=== PATIENT | female | born 2000 | race Two or more races ===

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

== ENCOUNTER → 2020-09-15 | Outpatient (CLI) | payer OTHER ==
[~2020-09-15] MED LIST changes: +MECL-75 PO; -MECL25TA3 PO
--- NOTE | 2020-09-16 09:19 | RAD ---
3 views the lumbar spine without comparison for chronic low back pain, history of lumbar spine surger y. FINDINGS: There is mild straightening of the normal lumbar lordosis. There is pedicle screw and anjel f ixation of L5 on S1, however both pedicle screws at S1 are fractured, and there is grade 1 anterolist hesis of L5 on S1. No other significant degenerative changes. IMPRESSION: 1. Fractured pedicle screws at S1, with grade 1 anterolisthesis of L5 on S1. Electronically signed by: Paramjit Ledezma MD (09/16/2020 9:17 AM) [id number]
== END ==
LOC: RAD 16:54
PROVIDERS: ATTEND Family Medicine
DX: M43.17 Spondylolisthesis, lumbosacral region (principal); Z98.890 Other specified postprocedural states
CPT/HCPCS: 72100

== ENCOUNTER → 2020-09-24 | Outpatient (CLI) | payer OTHER ==
[~2020-09-24] MED LIST changes: +CLIN150C15 PO; +SULF1TAB24 PO
--- NOTE | 2020-09-24 12:07 | [facility] ---
EXAM: Lumbar spine MRI without contrast. HISTORY: Fixation hardware abnormality. Fractured screws on lumbar radiographs. TECHNIQUE: Multiplanar, multisequence magnetic resonance imaging of the lumbar spine was performed wi thout contrast. COMPARISON: Lumbar radiographs dated 09/15/2020. FINDINGS: There is instrumented posterior spinal fusion at L5-S1. There is metallic artifact which li mits evaluation of the instrumentation. The bilateral fractured screws at S1 are better characterized on the prior radiograph. There is no edema within the L5 or S1 marrow to suggest significant screw l oosening. There is grade 1 anterolisthesis of L5 on S1, measuring 3 mm. There is minimal lumbar scoli osis and mild lumbar hyperlordosis. The vertebral bodies are normal in height and the disc spaces are preserved. There is no suspicious osseous lesion. The conus terminates at L1. There is mild diffusel y decreased T1 marrow signal intensity. This is most commonly due to anemia in female patient of this age. This is not within limits to suggest a marrow infiltrative process. There is postoperative scar ring and susceptibility effect within the posterior back soft tissues. There is epidural lipomatosis primarily at the lower lumbar levels and within the sacral canal. At L1-L2 and L2-L3, there is no stenosis. At L3-L4, there is minimal endplate remodeling. There is mild left greater than right facet arthropat hy. There is minimal left greater than right foraminal stenosis. At L4-L5, there is mild left facet arthropathy. There is epidural lipomatosis resulting in mild narro wing of the thecal sac. At L5-S1, there is instrumented posterior spinal fusion. There is epidural lipomatosis resulting in s evere narrowing of the thecal sac. IMPRESSION: 1. Instrumented posterior spinal fusion at L5-S1. The recently demonstrated fractured S1 screws are b ninfa characterized on the radiographs dated 09/15/2000. 2. Grade 1 anterolisthesis of L5 on S1. This is superimposed on mild scoliosis and hyperlordosis. 3. Epidural lipomatosis primarily at the lower lumbar levels and within the sacral canal. This result s in severe narrowing of the thecal sac at the lumbosacral junction. 4. Minimal endplate remodeling and mild facet arthropathy at L3-L4, resulting in minimal left greater than right foraminal stenosis. Electronically signed by: Michelle Li MD (09/24/2020 12:04 PM) [id number]
== END ==
LOC: KCIC MRI 10:36
PROVIDERS: ATTEND Family Medicine
DX: M43.16 Spondylolisthesis, lumbar region (principal); M48.061 Spinal stenosis, lumbar region without neurogenic claudication; X58.XXXA Exposure to other specified factors, initial encounter; S32.119A Unspecified Zone I fracture of sacrum, initial encounter for closed fracture; Y93.89 Activity, other specified; Y92.89 Other specified places as the place of occurrence of the external cause; Y99.8 Other external cause status; Z96.7 Presence of other bone and tendon implants
CPT/HCPCS: 72148

== ENCOUNTER 2020-09-27 16:38 | Emergency (ER) | payer OTHER ==
[~2020-09-27] VITALS: Ht 160 cm; Wt 145.0 kg
[~2020-09-27 16:38] MED LIST changes: -CLIN150C15 PO; -SULF1TAB24 PO
[2020-09-27 17:10] VITALS: BP 204/103
[2020-09-27] MEDS ORDERED: CLIN150C15 PO (17:42)
[2020-09-27] MEDS ORDERED: SULF1TAB24 PO (17:42)
--- NOTE | 2020-09-27 17:42 | PHYS DOC ---
Past Medical History Past Medical History: No Pertinent History, Anxiety Additional Past Medical Histor: VERTIGO Past Surgical History: Other Additional Past Surgical Histo: Back surgery-lumbar fusion. Smoking Status: Never Smoker Alcohol Use: None Drug Use: None General Adult EDM: Chief Complaint: ANIMAL BITE HPI: HPI: Patient is a 20 year old female who presents to the ED today with cat scratches on her right right forearm that occurred yesterday from her own she states her cat is up-to-date with its shots. Review of Systems: Review of Systems: Constitutional: Denies fever or chills. [] Musculoskeletal: Denies back pain or joint pain. [] Integument: Reports cat bites and scratches today right forearm Neurologic: Denies headache, focal weakness or sensory changes. [] Psychiatric: Denies depression or anxiety. [] Heart Score: C/O Chest Pain: N/A Risk Factors: Risk Factors: DM, Current or recent (<one month) smoker, HTN, HLP, family history of CAD, obesity. Risk Scores: Score 0 - 3: 2.5% MACE over next 6 weeks - Discharge Home Score 4 - 6: 20.3% MACE over next 6 weeks - Admit for Clinical Observation Score 7 - 10: 72.7% MACE over next 6 weeks - Early Invasive Strategies Allergies: Allergies: Allergies Coded Allergies Type Severity Reaction Last Updated Verified amoxicillin Allergy Intermediate Rash 07/24/13 Yes Physical Exam: PE: Constitutional: Well developed, well nourished, no acute distress, non-toxic appearance. [] Skin: Right forearm with multiple puncture wounds and scratches. Adequate radial, medial, ulnar sensation to the right upper extremity. Plus right radial pulse. Cap refill less than 2 seconds of right fingers. Back: No tenderness, no CVA tenderness. [] Extremities: No tenderness, no cyanosis, no clubbing, ROM intact, no edema. [] Neurologic: Alert and oriented X 3, normal motor function, normal sensory function, no focal deficits noted. [] Psychologic: Affect normal, judgement normal, mood normal. [] EKG: EKG: [] Radiology/Procedures: Radiology/Procedures: [] Course & Med Decision Making: Course & Med Decision Making Pertinent Labs and Imaging studies reviewed. (See chart for details) This is a 20-year-old female patient presented to the ED today with cat scratches and bites to the right forearm that occurred yesterday. Tetanus up-to-date. Discharged on clindamycin and Bactrim Dragon Disclaimer: Lex Disclaimer: This electronic medical record was generated, in whole or in part, using a voice recognition dictation system. Departure Departure Impression: Primary Impression: Cat scratch of forearm Qualified Codes: S50.811A - Abrasion of right forearm, initial encounter; W55.03XA - Scratched by cat, initial encounter Additional Impression: Cat bite of forearm Qualified Codes: S51.851A - Open bite of right forearm, initial encounter; W55.01XA - Bitten by cat, initial encounter Disposition: HOME / SELF CARE / HOMELESS Condition: STABLE Referrals: ROSA ELENA CISNEROS MD (PCP) Follow-up in 1 week Patient Instructions: Cat Scratch Disease-Brief Additional Instructions: You were seen for Scratches and bites to the right forearm. You can wash the area with regular soap and water. Keep it clean and dry. Take the prescribed antibiotics until completed. Follow-up with your doctor in 1 week. Come back to the ED at any point symptoms worsen Scripts Sulfamethoxazole/Trimethoprim (BACTRIM DS TABLET) 1 Each Tablet 1 TAB PO BID for 10 Days, #20 TAB 0 Refills Prov: GRACIELA BURNS APRN 09/27/20 Clindamycin Hcl (CLINDAMYCIN HCL) 150 Mg Capsule 3 CAP PO TID, #90 CAP Prov: GRACIELA BURNS APRN 09/27/20 GRACIELA BURNS APRN Sep 27, 2020 17:42
[2020-09-27] MEDS ORDERED: DIPH,PERTUSS(ACELL),TET VAC/PF 0.5 ML SYRINGE. VAX IM ONE (18:00)
== END 2020-09-27 18:01 | disposition home or self-care (01) ==
LOC: ER 16:38
DX: S50.811A Abrasion of right forearm, initial encounter (principal); Z88.1 Allergy status to other antibiotic agents; W55.03XA Scratched by cat, initial encounter; Y93.89 Activity, other specified; Y92.89 Other specified places as the place of occurrence of the external cause; Y99.8 Other external cause status
CPT/HCPCS: 90471; 90715; 99283

== ENCOUNTER → 2020-10-12 | Outpatient (CLI) | payer OTHER ==
[2020-09-27 17:10] VITALS: BP 204/103
[~2020-10-12] MED LIST changes: +ACET325T9 PO; +CLIN150C15 PO; +IOHEXOL 180 MG/ML 10 ML VIAL. ONE; +SULF1TAB24 PO; +methylPREDNISolone ACETATE 40 MG/ML VIAL. ONE; +methylPREDNISolone ACETATE 80 MG/ML VIAL. ONE
--- NOTE | 2020-10-12 15:48 | PDOC1 ---
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 not with any specific lifting but also with some twisting and bending patient reports the pain began in the low back and occasionally radiate in the posterior gluteus and lateral thighs but mostly in the back patient reports is constant sharp stabbing in the back aching worse at night waking her from sleep least for 5 times does not affect her bowel bladder control or ability to walk is worse with standing still also sitting for prolonged periods patient reports he was doing some exercise on her own some stretching has had no formal physical therapy at this time or other treatments patient to take ibuprofen which is not decreasing the pain significantly. Patient reports her disability rating 0-10 10 being worst is an 8 with him home responsibilities 9 with recreation 6 with social activity 8-10 with occupation 8 with sexual behavior and life support activities and 5 with self-care activities. Patient have MRI scan lumbar spine which shows L5-S1 instrumented posterior spinal fusion with narrowing of the th ecal sac L4-5 shows mild left facet arthropathy with epidural lipomatosis also mild narrowing of the thecal sac L3-4 shows mild left greater than right facet arthropathy and mild left greater than right foraminal stenosis. Patient reports no loss of motor function but significant fatigability in the lower extremities with standing and repetitive flexing and extension at the lumbar spine. PAST MEDICAL HISTORY: PMH: No major medical problems or conditions that she is aware of PREVIOUS SURGERIES: Past Surgical Hx: Lumbar fusion at age 13 L5-S1 with posterior instrumentation CURRENT MEDICATIONS: Current Meds: Active Scripts Medications Dose Route/Sig Max Daily Dose Days Date Category Tylenol (Acetaminophen) 325 Mg Tablet 1 Tab PO PRN Q4HRS 10/12/20 Reported ALLERGIES; Allergies: Coded Allergies: amoxicillin (Verified Allergy, Intermediate, Rash, 07/24/13) FAMILY HISTORY: Family Hx: No major medical problems or conditions that she is aware of SOCIAL HISTORY: Social Hx: Patient is alcohol only very rarely any once a month does not smoke not use any illegal illicit or recreational drugs is single lives locally in [facility] REVIEW OF SYSTEMS: ROS: Positive for those items mentioned in history of present illness, all systems are reviewed, otherwise negative ,and are complete full and well-documented on patient's chart. PHYSICAL EXAM: VS: Blood pressure is 132/80, pulse 78, respirations 18, temperature 98.7 F, height is 5 feet 3 inches, weight is 326 pounds PE: PHYSICAL EXAMINATION: GENERAL: The patient is awake, alert, oriented, appropriate, very pleasant in demeanor. HEENT: Shows normocephalic, atraumatic. Extraocular movements are intact and symmetrical. Oral cavity: Mucous membranes moist and pink. Dentition is intact. NECK: Shows anterior throat supple without palpable lymphadenopathy noted. Swallow reflex symmetrical. CHEST: Shows normal on inspection. Breath sounds are clear bilaterally. HEART: Shows S1, S2 clear. No murmurs. ABDOMEN: Soft, nontender, nondistended, obese. No palpable organomegaly is noted. No rebound or guarding demonstrated. BACK: Shows spine grossly in the midline. Normal-appearing cervical lordotic curvature. There is slightly increased thoracic kyphosis, some flattening of the lumbar lordotic curvature. Well-healed surgical scaring in the midline is noted. Lumbar paraspinous muscles show symmetrical on inspection, on palpation shows some moderate tenderness diffusely throughout the upper, middle and lower distribution of the paraspinous muscles bilaterally and also into the lower thoracic paraspinous musculature, firm and tender, but without specific trigger points, without radiation of pain. The patient has good rotational motion of the lumbar spine, both laterally as well as extension and flexion with only mild discomfort. No tenderness over the spinous processes, sacrum or sacroiliac reg ions. EXTREMITIES: Lower extremities show deep tendon reflexes 2+ in the patellar and tendo calcaneus tendons. Motor exam is 5 on a scale of 5 with right dorsiflexion, extension, quadriceps and hamstring flexion and 5/5 on the left. Peripheral pulses are 1+ posterior tibial. No peripheral edema is noted bilaterally. Lower extremities are warm and dry to touch, equal in color and appearance. Straight leg raise noted to be negative bilaterally. Gaenslen's and Arcadio's maneuvers are negative bilaterally as well. The patient is able to stand, stand on her toes without significant difficulty or loss of balance, walks with a normal-appearing gait does not appear to favor the right or left lower extremity, not use any assistive devices to ambulate. SKIN: Shows warm and dry, good turgor. No edema. No sores, rashes or bruising throughout. IMPRESSION: Impression: 20-year-old female with approximate 1 month history increasing pain low back with occasional radiation to lower extremities Status post L5-S1 posterior fusion instrumentation MRI scan lumbar spine as noted Plan: Options were discussed with the patient including conservative medical management physical therapies and interventional techniques. Patient would like to pursue interventional techniques. We discussed a lumbar epidural steroid injections description as well as anatomical models to describe the procedure. Risks were discussed including but not limited to: Bleeding, infection, possibility of epidural hematoma and subsequent neurological compromise, dural puncture, headaches, spinal cord and/or nerve damage, side effects of steroid medication, and poor results regarding pain control. Patient understands and wished to proceed. She will return to clinic in approximate 2 weeks for follow- up, was counseled as return appointment activity level and side effects to be aware of. Procedure is lumbar epidural steroid injection under local anesthetic using sterile prep and drape at the L4-5 level using C-arm fluoroscopic guidance in both AP and lateral views medications injected is 120 mg Depo-Medrol +10mL preservative-free normal saline and 2 mL contrast- condition at discharge is stable patient tolerated procedure well had no complications. MARIA FERNANDA CARTER MD Oct 12, 2020 15:48
== END | disposition home or self-care (01) ==
LOC: PNCL 08:10
PROVIDERS: ATTEND Anesthesiology
DX: M54.5 Low back pain (principal); M25.552 Pain in left hip; M25.551 Pain in right hip; Z88.1 Allergy status to other antibiotic agents; Z79.899 Other long term (current) drug therapy; Z98.890 Other specified postprocedural states; Z82.49 Family history of ischemic heart disease and other diseases of the circulatory system; Z83.3 Family history of diabetes mellitus
CPT/HCPCS: 62323; J1030; J1040; Q9965